=== PATIENT | male | born 1950 | race Caucasian/White ===

== ENCOUNTER 2020-05-05 14:31 | Emergency (ER) | payer MEDICARE, OTHER ==
[~2020-05-05] VITALS: Ht 180.3 cm; Wt 89.6 kg
[2020-05-05 16:47] VITALS: BP 134/88
--- NOTE | 2020-05-05 18:13 | NUR ---
PT CAME IN CO OF HIS FEEDING TUBE INSERTION POINT IS RED AND PAINFUL. SITE LOOKS RED AND IS WEAPING A SMALL AMOUNT OF PUS. PT HAD TUBE PLACED AFTER BEING IN A COMA FOR 5 WEEKS. PT IS SUPPOSED TO GET TUBE REMOVED MID MAY. PT IS RESTING IN [facility]. LABS DRAWN. CONNECTED TO MONITORING EQUIPMENT
[2020-05-05 18:19] LABS: ANION GAP 6 mmol/L (5-15); CHLORIDE 106 mmol/L (98-107)
[2020-05-05 18:20] LABS: CREATININE 0.85 mg/dL (0.7-1.3)
[2020-05-05 18:27] LABS: BASOPHILS # (AUTO) 0.06 x10^3/uL (0-0.1); BASOPHILS % (AUTO) 1 % (0-1); EOSINOPHILS # (AUTO) 0.28 x10^3/uL (0-0.4); EOSINOPHILS % (AUTO) 3 % (1-7); LYMPHOCYTES # (AUTO) 2.88 x10^3/uL (1-3.4); LYMPHOCYTES % (AUTO) 31 % (22-44); MD NO; MEAN CORPUSCULAR HEMOGLOBIN 31.4 pg (27.5-34.5); MEAN CORPUSCULAR HGB CONC 32.7 g/dL (33.2-36.2); MEAN CORPUSCULAR VOLUME 95.9 fL (81-97); MONOCYTES # (AUTO) 0.87 x10^3/uL (0.2-0.8); MONOCYTES % (AUTO) 9 % (2-9); NEUTROPHILS # (AUTO) 5.15 x10^3/uL (1.8-6.8); NEUTROPHILS % (AUTO) 56 % (42-75); PLATELET COUNT 339 x10^3/uL (130-400); RED BLOOD COUNT 3.77 x10^6/uL (4.38-5.82); RED CELL DISTRIBUTION WIDTH 13.8 % (9.4-14.8)
== END 2020-05-05 19:44 | disposition home or self-care (01) ==
LOC: ED 19:37
DX: L03.311 Cellulitis of abdominal wall (principal); R40.20 Unspecified coma
CPT/HCPCS: 36415; 80048; 85025; 99282; 99283